=== PATIENT | female | born 1950 | race Caucasian/White ===

== ENCOUNTER 2022-08-02 15:43 | Inpatient (IN) ==
[2022-08-02 18:51] LABS: Basophils % 0.2 % (0.0-0.8); Eosinophils # 0.1 10*3/uL (0.0-0.87); Eosinophils % 1.2 % (0.00-10.9); Hematocrit 32.4 VOL% (35.7-47.0); Hemoglobin 11.1 GM/DL (12.0-16.0); Immature Granulocytes % 0.5 %; Immature Granulocytes Absolute 0.04 #; Lymphocytes # 0.8 10*3/uL (1.4-4.0); Mean Corpuscular HGB Conc 34.3 GM/DL (32-36); Mean Corpuscular Volume 90.5 FL (87-102); Mean Platelet Volume 9.9 FL (9.6-12.0); Monocytes # 0.7 10*3/uL (0.11-0.8); Monocytes % 9.2 % (1.7-12.7); Neutrophils % 78.9 % (38.7-73.9); Platelet Count 198 T/CUMM (130-400); Red Blood Count 3.58 MC/CUMM (3.8-5.5); Red Cell Distribution Width 12.9 % (9.3-17.3)
[2022-08-02 19:10] LABS: Albumin 3.1 G/DL (3.4-5.0); Bilirubin,Total 1.2 MG/DL (0.20-1.00); Calcium 8.4 MG/DL (8.5-10.1); Potassium 3.8 MMOL/L (3.5-5.1); Total Protein 6.2 G/DL (6.4-8.2)
[2022-08-02 20:02] LABS: Bilirubin,Urine Negative (Negative); Blood, Urine Negative (Negative); Glucose,Urine (UA) Negative (Negative); Hyaline Casts,Urine 1 /LPF (0-3); Ketones,Urine Negative (Negative); Nitrite,Urine Negative (Negative); Protein,Urine Negative (Negative); RBC,Urine <1 /HPF (0-4); Urine Appearance CLEAR (Clear); Urine Color Yellow (Yellow); Urine Specific Gravity 1.017 (1.001-1.035)
[2022-08-02] MEDS ORDERED: FUROSEMIDE 40 MG/4 ML VIAL IV STA (21:43)
[2022-08-02] MEDS ORDERED: ACETAMINOPHEN 325 MG TABLET PO PRN (21:43)
[2022-08-02] MEDS ORDERED: hydrALAZINE 20 MG/1 ML VIAL IV PRN (21:43)
[2022-08-02] MEDS ORDERED: MORPHINE 2 MG/1 ML SYRINGE IV PRN (21:43)
[2022-08-02] MEDS: CIPROFLOXACIN INJ 200 MG/100 ML PREMIX IV SCH (22:32)
[2022-08-02] MEDS: metroNIDAZOLE INJ 500 MG/100 ML PREMIX IV SCH (23:20)
[2022-08-03 04:41] LABS: Basophils % 0.2 % (0.0-0.8); Eosinophils # 0.1 10*3/uL (0.0-0.87); Eosinophils % 2.1 % (0.00-10.9); Hematocrit 31.9 VOL% (35.7-47.0); Hemoglobin 11.1 GM/DL (12.0-16.0); Immature Granulocytes % 0.8 %; Immature Granulocytes Absolute 0.05 #; Lymphocytes # 0.7 10*3/uL (1.4-4.0); Lymphocytes % 10.9 % (21.3-54.2); Mean Corpuscular HGB Conc 34.8 GM/DL (32-36); Mean Corpuscular Volume 89.6 FL (87-102); Mean Platelet Volume 9.9 FL (9.6-12.0); Monocytes # 0.8 10*3/uL (0.11-0.8); Monocytes % 11.5 % (1.7-12.7); Neutrophils % 74.5 % (38.7-73.9); Platelet Count 178 T/CUMM (130-400); Red Blood Count 3.56 MC/CUMM (3.8-5.5); Red Cell Distribution Width 12.8 % (9.3-17.3); White Blood Count 6.6 T/CUMM (4-12)
[2022-08-03 05:04] LABS: Calcium 8.7 MG/DL (8.5-10.1); Osmolality,Calculated 270.2 MOS/KG (273-304); Potassium 3.1 MMOL/L (3.5-5.1)
[2022-08-03] MEDS: LEVOTHYROXINE 88 MCG TABLET PO SCH (05:21)
[2022-08-03] MEDS: metroNIDAZOLE INJ 500 MG/100 ML PREMIX IV SCH ×3 (05:29→22:50)
[2022-08-03] MEDS: ASPIRIN EC 81 MG TABLET PO SCH (08:26)
[2022-08-03] MEDS: FUROSEMIDE 40 MG/4 ML VIAL IV SCH ×2 (08:26→16:49)
[2022-08-03] MEDS: SPIRONOLACTONE 25 MG TABLET PO SCH (08:26)
[2022-08-03] MEDS: ISOSORBIDE MONONITRATE 60 MG TABLET PO SCH (08:27)
[2022-08-03] MEDS: METOPROLOL TARTRATE 25 MG TABLET PO SCH ×2 (08:27→21:54)
[2022-08-03] MEDS: LOSARTAN 25 MG TABLET PO SCH (08:27)
[2022-08-03] MEDS: MAGNESIUM CHLORIDE 64 MG TABLET PO SCH (08:28)
[2022-08-03] MEDS: PANTOPRAZOLE 40 MG TABLET PO SCH (08:28)
[2022-08-03] MEDS: CIPROFLOXACIN INJ 200 MG/100 ML PREMIX IV SCH ×2 (10:15→21:54)
[2022-08-03] MEDS: POTASSIUM CHLORIDE RIDER 10 MEQ/100 ML PREMIX IV SCH (12:34)
[2022-08-03] MEDS: OSELTAMIVIR 75 MG CAPSULE PO SCH (21:54)
[2022-08-04] MEDS: metroNIDAZOLE INJ 500 MG/100 ML PREMIX IV SCH ×3 (05:58→22:52)
[2022-08-04] MEDS: LEVOTHYROXINE 88 MCG TABLET PO SCH (05:58)
[2022-08-04 06:18] LABS: Basophils % 0.5 % (0.0-0.8); Eosinophils # 0.2 10*3/uL (0.0-0.87); Eosinophils % 3.7 % (0.00-10.9); Hematocrit 34.7 VOL% (35.7-47.0); Hemoglobin 11.8 GM/DL (12.0-16.0); Immature Granulocytes % 0.8 %; Immature Granulocytes Absolute 0.05 #; Lymphocytes # 1.2 10*3/uL (1.4-4.0); Lymphocytes % 17.6 % (21.3-54.2); Mean Corpuscular Volume 90.8 FL (87-102); Mean Platelet Volume 10.6 FL (9.6-12.0); Monocytes # 0.7 10*3/uL (0.11-0.8); Monocytes % 10.8 % (1.7-12.7); Neutrophils % 66.6 % (38.7-73.9); Platelet Count 240 T/CUMM (130-400); Red Blood Count 3.82 MC/CUMM (3.8-5.5); White Blood Count 6.6 T/CUMM (4-12)
[2022-08-04 06:44] LABS: Albumin 3.2 G/DL (3.4-5.0); Bilirubin,Total 0.8 MG/DL (0.20-1.00); Osmolality,Calculated 269.4 MOS/KG (273-304); Potassium 3.5 MMOL/L (3.5-5.1); Total Protein 7.1 G/DL (6.4-8.2)
[2022-08-04] MEDS: OSELTAMIVIR 75 MG CAPSULE PO SCH ×2 (09:47→21:50)
[2022-08-04] MEDS: FUROSEMIDE 40 MG TABLET PO SCH (09:47)
[2022-08-04] MEDS: LOSARTAN 25 MG TABLET PO SCH (09:47)
[2022-08-04] MEDS: MAGNESIUM CHLORIDE 64 MG TABLET PO SCH (09:47)
[2022-08-04] MEDS: ASPIRIN EC 81 MG TABLET PO SCH (09:47)
[2022-08-04] MEDS: METOPROLOL TARTRATE 25 MG TABLET PO SCH ×2 (09:47→21:50)
[2022-08-04] MEDS: SPIRONOLACTONE 25 MG TABLET PO SCH (09:47)
[2022-08-04] MEDS: ISOSORBIDE MONONITRATE 60 MG TABLET PO SCH (09:47)
[2022-08-04] MEDS: PANTOPRAZOLE 40 MG TABLET PO SCH (09:47)
[2022-08-04] MEDS: FUROSEMIDE 40 MG/4 ML VIAL IV SCH (09:57)
[2022-08-04] MEDS: CIPROFLOXACIN INJ 200 MG/100 ML PREMIX IV SCH ×2 (11:22→21:51)
[2022-08-04] MEDS: ONDANSETRON 4 MG/2 ML VIAL IV PRN (11:54)
[2022-08-05 05:55] LABS: Basophils % 0.2 % (0.0-0.8); Eosinophils # 0.2 10*3/uL (0.0-0.87); Eosinophils % 3.2 % (0.00-10.9); Hemoglobin 10.5 GM/DL (12.0-16.0); Immature Granulocytes % 0.9 %; Immature Granulocytes Absolute 0.04 #; Lymphocytes # 1.1 10*3/uL (1.4-4.0); Lymphocytes % 23.4 % (21.3-54.2); Mean Corpuscular HGB Conc 33.9 GM/DL (32-36); Mean Corpuscular Volume 90.9 FL (87-102); Mean Platelet Volume 9.9 FL (9.6-12.0); Monocytes # 0.5 10*3/uL (0.11-0.8); Monocytes % 11.5 % (1.7-12.7); Neutrophils % 60.8 % (38.7-73.9); Platelet Count 252 T/CUMM (130-400); Red Blood Count 3.41 MC/CUMM (3.8-5.5); Red Cell Distribution Width 12.9 % (9.3-17.3); White Blood Count 4.6 T/CUMM (4-12)
[2022-08-05] MEDS: LEVOTHYROXINE 88 MCG TABLET PO SCH (06:15)
[2022-08-05] MEDS: metroNIDAZOLE INJ 500 MG/100 ML PREMIX IV SCH ×3 (06:15→21:04)
[2022-08-05 06:21] LABS: Calcium 8.6 MG/DL (8.5-10.1); Osmolality,Calculated 266.5 MOS/KG (273-304); Potassium 3.3 MMOL/L (3.5-5.1)
[2022-08-05] MEDS ORDERED: POTASSIUM CHLORIDE 20 MEQ TABLET PO ONE (08:35)
[2022-08-05] MEDS: LOSARTAN 25 MG TABLET PO SCH (09:09)
[2022-08-05] MEDS: ISOSORBIDE MONONITRATE 60 MG TABLET PO SCH (09:09)
[2022-08-05] MEDS: FUROSEMIDE 40 MG TABLET PO SCH (09:09)
[2022-08-05] MEDS: METOPROLOL TARTRATE 25 MG TABLET PO SCH ×2 (09:09→20:55)
[2022-08-05] MEDS: SPIRONOLACTONE 25 MG TABLET PO SCH (09:09)
[2022-08-05] MEDS: PANTOPRAZOLE 40 MG TABLET PO SCH (09:09)
[2022-08-05] MEDS: MAGNESIUM CHLORIDE 64 MG TABLET PO SCH (09:09)
[2022-08-05] MEDS: ASPIRIN EC 81 MG TABLET PO SCH (09:09)
[2022-08-05] MEDS: HEPARIN 5,000 UNIT/1 ML VIAL SUBCUT SCH ×2 (09:10→20:57)
[2022-08-05] MEDS: CIPROFLOXACIN INJ 200 MG/100 ML PREMIX IV SCH ×2 (09:10→22:51)
[2022-08-05] MEDS: SODIUM CHLORIDE 0.9% 250 ML IV SCH ×3 (16:16→23:44)
[2022-08-05] MEDS: POTASSIUM CHLORIDE RIDER 10 MEQ/100 ML PREMIX IV SCH ×2 (20:06→20:07)
[2022-08-06] MEDS: ONDANSETRON 4 MG/2 ML VIAL IV PRN (00:01)
[2022-08-06] MEDS: SODIUM CHLORIDE 0.9% 250 ML IV SCH ×2 (04:52→11:47)
[2022-08-06] MEDS: LEVOTHYROXINE 88 MCG TABLET PO SCH (05:45)
[2022-08-06] MEDS: metroNIDAZOLE INJ 500 MG/100 ML PREMIX IV SCH ×2 (05:45→14:14)
[2022-08-06 06:22] LABS: Albumin 2.8 G/DL (3.4-5.0); Bilirubin,Total 0.5 MG/DL (0.20-1.00); Calcium 8.3 MG/DL (8.5-10.1); Osmolality,Calculated 272.1 MOS/KG (273-304); Total Protein 5.8 G/DL (6.4-8.2)
[2022-08-06] MEDS: ISOSORBIDE MONONITRATE 60 MG TABLET PO SCH (09:48)
[2022-08-06] MEDS: METOPROLOL TARTRATE 25 MG TABLET PO SCH (09:48)
[2022-08-06] MEDS: HEPARIN 5,000 UNIT/1 ML VIAL SUBCUT SCH (09:49)
[2022-08-06] MEDS: ASPIRIN EC 81 MG TABLET PO SCH (09:49)
[2022-08-06] MEDS: MAGNESIUM CHLORIDE 64 MG TABLET PO SCH (09:49)
[2022-08-06] MEDS: LOSARTAN 25 MG TABLET PO SCH (09:49)
[2022-08-06 11:41] VITALS: BP 103/61
[2022-08-06] MEDS: CIPROFLOXACIN INJ 200 MG/100 ML PREMIX IV SCH (11:46)
[2022-08-06] MEDS: PANTOPRAZOLE 40 MG TABLET PO SCH (11:47)
[2022-08-17] MEDS ORDERED: EVOLOCUMAB 140 MG/ML SUBCUT SCH (09:00)
== END 2022-08-06 16:05 | disposition home or self-care (01) | DRG 391 ==
LOC: N.ED 15:43 → N.EDINP 21:43 → N.TELEN 08-03 00:10
PROVIDERS: ADMIT Internal Medicine; ATTEND Internal Medicine

== ENCOUNTER 2022-09-13 16:15 | Inpatient (IN) ==
[2022-09-13] MEDS ORDERED: SODIUM CHLORIDE 0.9% 1,000 ML IV STA (17:18)
[2022-09-13 17:37] LABS: PT Patient Result 10.9 SECS (10.1-12.1); Partial Thromboplastin Time 28.8 SECS (23.7-32.9)
[2022-09-13 17:45] LABS: Bilirubin,Direct 12.89 MG/DL (0.0-0.20)
[2022-09-13 17:48] LABS: Bilirubin,Total 15.9 MG/DL (0.20-1.00)
[2022-09-13 18:21] LABS: Bilirubin,Urine Large mg/dL (Negative); Blood, Urine Trace mg/dL (Negative); Glucose,Urine (UA) 100 mg/dL (Negative); Ketones,Urine Trace mg/dL (Negative); Mucus,Urine Occasional /LPF (Occasional); Nitrite,Urine Negative (Negative); Protein,Urine 100 mg/dL (Negative); RBC,Urine 4 /HPF (0-4); Squamous Epithelial Cell,Urine Occasional /HPF (0-10); Urine Appearance Clear (Clear); Urine Color Yellow (Yellow); Urine Urobilinogen 0.2 eU/dL (<2.0); Urine pH 5.5 (4.5-8.0)
[2022-09-13 19:32] LABS: Hepatitis B Core IgM Quant 0.07 Index; Hepatitis B Surface Ag Quant < 0.10 Index; Hepatitis B Surface Ag Result Non-Reactive (NonReactive); Hepatitis C Virus Ab Quant < 0.02 Index; Hepatitis C Virus Ab Result Non-Reactive (NonReactive)
[2022-09-13 21:23] LABS: Basophils % 0.4 % (0.0-0.8); Eosinophils # 0.2 10*3/uL (0.0-0.87); Eosinophils % 3.1 % (0.00-10.9); Hematocrit 34.8 VOL% (35.7-47.0); Hemoglobin 11.2 GM/DL (12.0-16.0); Immature Granulocytes % 0.6 %; Immature Granulocytes Absolute 0.03 #; Lymphocytes # 0.6 10*3/uL (1.4-4.0); Mean Corpuscular HGB Conc 32.2 GM/DL (32-36); Mean Corpuscular Volume 96.4 FL (87-102); Mean Platelet Volume 11.3 FL (9.6-12.0); Monocytes # 0.5 10*3/uL (0.11-0.8); Monocytes % 10.5 % (1.7-12.7); Neutrophils % 72.4 % (38.7-73.9); Platelet Count 160 T/CUMM (130-400); Red Blood Count 3.61 MC/CUMM (3.8-5.5); Red Cell Distribution Width 14.3 % (9.3-17.3); White Blood Count 4.9 T/CUMM (4-12)
[2022-09-13 21:35] LABS: Albumin 3.3 G/DL (3.4-5.0); Potassium 3.5 MMOL/L (3.5-5.1); Total Protein 6.9 G/DL (6.4-8.2)
[2022-09-13 21:38] LABS: Bilirubin,Total 15.8 MG/DL (0.20-1.00)
[2022-09-13] MEDS ORDERED: ONDANSETRON 4 MG/2 ML VIAL IV PRN (22:45)
[2022-09-13] MEDS ORDERED: diphenhydrAMINE CAP 25 MG CAPSULE PO PRN (22:45)
[2022-09-13] MEDS ORDERED: ZALEPLON 5 MG CAPSULE PO PRN (22:45)
[2022-09-13] MEDS ORDERED: NICOTINE 21 MG/24 HR PATCH TRANSDERM PRN (22:45)
[2022-09-13] MEDS ORDERED: guaiFENesin/DM ER 600-30 MG TABLET PO PRN (22:45)
[2022-09-13] MEDS ORDERED: hydrALAZINE 20 MG/1 ML VIAL IV PRN (22:45)
[2022-09-13] MEDS: SODIUM CHLORIDE 0.9% 1,000 ML IV SCH (23:54)
[2022-09-14 06:32] LABS: Basophils % 0.3 % (0.0-0.8); Eosinophils # 0.1 10*3/uL (0.0-0.87); Eosinophils % 2.4 % (0.00-10.9); Hematocrit 32.4 VOL% (35.7-47.0); Hemoglobin 9.9 GM/DL (12.0-16.0); Immature Granulocytes % 0.3 %; Immature Granulocytes Absolute 0.01 #; Lymphocytes # 0.6 10*3/uL (1.4-4.0); Lymphocytes % 16.6 % (21.3-54.2); Mean Corpuscular HGB Conc 30.6 GM/DL (32-36); Mean Corpuscular Volume 100.9 FL (87-102); Mean Platelet Volume 10.9 FL (9.6-12.0); Monocytes # 0.4 10*3/uL (0.11-0.8); Neutrophils % 69.4 % (38.7-73.9); Platelet Count 101 T/CUMM (130-400); Red Blood Count 3.21 MC/CUMM (3.8-5.5); Red Cell Distribution Width 14.6 % (9.3-17.3); White Blood Count 3.7 T/CUMM (4-12)
[2022-09-14 06:38] LABS: Platelet Estimate Decreased
[2022-09-14 06:40] LABS: Albumin 2.6 G/DL (3.4-5.0); Calcium 8.5 MG/DL (8.5-10.1); Osmolality,Calculated 276.4 MOS/KG (273-304); Potassium 3.2 MMOL/L (3.5-5.1); Total Protein 5.4 G/DL (6.4-8.2)
[2022-09-14] MEDS: INSULIN LISPRO 100 UNIT/ML SUBCUT SCH ×3 (09:36→16:48)
[2022-09-14] MEDS: PANTOPRAZOLE 40 MG TABLET PO SCH (09:36)
[2022-09-14] MEDS: HEPARIN 5,000 UNIT/1 ML VIAL SUBCUT SCH ×2 (09:39→22:45)
[2022-09-14] MEDS ORDERED: GLUCAGON 1 MG VIAL IM PRN (15:58)
[2022-09-14] MEDS ORDERED: DEXTROSE 10% 250 ML BAG IV PRN (16:00)
[2022-09-14] MEDS ORDERED: TUBERCULIN SKIN TEST 0.1 ML SYRINGE INTRADERM ONE (16:10)
[2022-09-14 16:41] LABS: % Iron Saturation 23.1 % (18-50)
[2022-09-15] MEDS: SODIUM CHLORIDE 0.9% 1,000 ML IV SCH ×2 (03:04→22:04)
[2022-09-15] MEDS: INSULIN LISPRO 100 UNIT/ML SUBCUT SCH ×5 (03:08→21:57)
[2022-09-15 05:08] LABS: Basophils % 0.2 % (0.0-0.8); Eosinophils # 0.1 10*3/uL (0.0-0.87); Hematocrit 28.2 VOL% (35.7-47.0); Hemoglobin 9.3 GM/DL (12.0-16.0); Immature Granulocytes % 0.7 %; Immature Granulocytes Absolute 0.03 #; Lymphocytes # 0.7 10*3/uL (1.4-4.0); Lymphocytes % 16.2 % (21.3-54.2); Mean Corpuscular Volume 93.7 FL (87-102); Mean Platelet Volume 11.5 FL (9.6-12.0); Monocytes # 0.5 10*3/uL (0.11-0.8); Monocytes % 12.3 % (1.7-12.7); Neutrophils % 68.6 % (38.7-73.9); Platelet Count 115 T/CUMM (130-400); Red Blood Count 3.01 MC/CUMM (3.8-5.5); Red Cell Distribution Width 14.5 % (9.3-17.3); White Blood Count 4.1 T/CUMM (4-12)
[2022-09-15 05:32] LABS: Albumin 2.5 G/DL (3.4-5.0); Calcium 8.5 MG/DL (8.5-10.1); Osmolality,Calculated 276.5 MOS/KG (273-304); Potassium 3.1 MMOL/L (3.5-5.1); Total Protein 5.3 G/DL (6.4-8.2)
[2022-09-15 05:38] LABS: Bilirubin,Total 15.9 MG/DL (0.20-1.00)
[2022-09-15] MEDS: LEVOTHYROXINE 100 MCG TABLET PO SCH (06:17)
[2022-09-15] MEDS: POTASSIUM CHLORIDE 20 MEQ TABLET PO PRN (09:35)
[2022-09-15] MEDS: POTASSIUM CHLORIDE 10 MEQ TABLET PO SCH (09:35)
[2022-09-15] MEDS: ISOSORBIDE MONONITRATE 60 MG TABLET PO SCH (09:35)
[2022-09-15] MEDS: ASPIRIN EC 81 MG TABLET PO SCH (09:35)
[2022-09-15] MEDS: METOPROLOL TARTRATE 25 MG TABLET PO SCH (09:35)
[2022-09-15] MEDS: MAGNESIUM CHLORIDE 64 MG TABLET PO SCH (09:35)
[2022-09-15] MEDS: LOSARTAN 25 MG TABLET PO SCH (09:36)
[2022-09-15] MEDS: PANTOPRAZOLE 40 MG TABLET PO SCH (09:36)
[2022-09-15] MEDS: HEPARIN 5,000 UNIT/1 ML VIAL SUBCUT SCH ×2 (09:38→21:59)
[2022-09-15] MEDS ORDERED: hydrOXYzine HCL 25 MG TABLET PO PRN (11:57)
[2022-09-16 05:03] LABS: Basophils % 0.3 % (0.0-0.8); Eosinophils # 0.1 10*3/uL (0.0-0.87); Eosinophils % 3.8 % (0.00-10.9); Hematocrit 27.2 VOL% (35.7-47.0); Immature Granulocytes % 0.9 %; Immature Granulocytes Absolute 0.03 #; Lymphocytes # 0.8 10*3/uL (1.4-4.0); Lymphocytes % 24.7 % (21.3-54.2); Mean Corpuscular HGB Conc 33.1 GM/DL (32-36); Mean Corpuscular Volume 93.2 FL (87-102); Mean Platelet Volume 11.1 FL (9.6-12.0); Monocytes # 0.4 10*3/uL (0.11-0.8); Monocytes % 13.8 % (1.7-12.7); Neutrophils % 56.5 % (38.7-73.9); Platelet Count 122 T/CUMM (130-400); Red Blood Count 2.92 MC/CUMM (3.8-5.5); Red Cell Distribution Width 14.9 % (9.3-17.3); White Blood Count 3.2 T/CUMM (4-12)
[2022-09-16 05:13] LABS: Albumin 2.3 G/DL (3.4-5.0); Calcium 8.3 MG/DL (8.5-10.1); Osmolality,Calculated 279.3 MOS/KG (273-304); Potassium 3.4 MMOL/L (3.5-5.1); Total Protein 5.2 G/DL (6.4-8.2)
[2022-09-16 05:15] LABS: Bilirubin,Total 17.6 MG/DL (0.20-1.00)
[2022-09-16 05:20] LABS: INR 1.1; PT Patient Result 12.4 SECS (10.1-12.1); Partial Thromboplastin Time 32.5 SECS (23.7-32.9)
[2022-09-16] MEDS: POTASSIUM CHLORIDE 20 MEQ TABLET PO PRN ×3 (05:32→14:51)
[2022-09-16] MEDS: LEVOTHYROXINE 100 MCG TABLET PO SCH (05:33)
[2022-09-16 05:59] LABS: Anisocytosis 1+; Macrocytosis 1+; Platelet Estimate Adequate
[2022-09-16] MEDS: SODIUM CHLORIDE 0.9% 1,000 ML IV SCH ×2 (08:49→17:30)
[2022-09-16] MEDS: INSULIN LISPRO 100 UNIT/ML SUBCUT SCH ×4 (08:49→20:31)
[2022-09-16] MEDS: METOPROLOL TARTRATE 25 MG TABLET PO SCH (10:03)
[2022-09-16] MEDS: LOSARTAN 25 MG TABLET PO SCH (10:03)
[2022-09-16] MEDS: ISOSORBIDE MONONITRATE 60 MG TABLET PO SCH (10:04)
[2022-09-16] MEDS: ASPIRIN EC 81 MG TABLET PO SCH (10:05)
[2022-09-16] MEDS: PANTOPRAZOLE 40 MG TABLET PO SCH (10:06)
[2022-09-16] MEDS: MAGNESIUM CHLORIDE 64 MG TABLET PO SCH (10:06)
[2022-09-16] MEDS: HEPARIN 5,000 UNIT/1 ML VIAL SUBCUT SCH ×2 (10:08→20:30)
[2022-09-16] MEDS: POTASSIUM CHLORIDE 10 MEQ TABLET PO SCH (10:10)
[2022-09-17] MEDS: SODIUM CHLORIDE 0.9% 1,000 ML IV SCH ×2 (00:58→18:00)
[2022-09-17] MEDS: LEVOTHYROXINE 100 MCG TABLET PO SCH (05:42)
[2022-09-17 05:48] LABS: Basophils % 0.3 % (0.0-0.8); Eosinophils # 0.2 10*3/uL (0.0-0.87); Eosinophils % 6.4 % (0.00-10.9); Hematocrit 26.9 VOL% (35.7-47.0); Hemoglobin 8.8 GM/DL (12.0-16.0); Immature Granulocytes % 0.7 %; Immature Granulocytes Absolute 0.02 #; Lymphocytes # 0.7 10*3/uL (1.4-4.0); Lymphocytes % 24.7 % (21.3-54.2); Mean Corpuscular HGB Conc 32.7 GM/DL (32-36); Mean Corpuscular Volume 93.4 FL (87-102); Mean Platelet Volume 11.7 FL (9.6-12.0); Monocytes # 0.3 10*3/uL (0.11-0.8); Monocytes % 11.5 % (1.7-12.7); Neutrophils % 56.4 % (38.7-73.9); Red Blood Count 2.88 MC/CUMM (3.8-5.5); Red Cell Distribution Width 15.1 % (9.3-17.3)
[2022-09-17 05:49] LABS: Platelet Count 122 T/CUMM (130-400)
[2022-09-17 06:13] LABS: Albumin 2.3 G/DL (3.4-5.0); Calcium 8.2 MG/DL (8.5-10.1); Osmolality,Calculated 271.8 MOS/KG (273-304); Potassium 3.9 MMOL/L (3.5-5.1)
[2022-09-17 06:15] LABS: Bilirubin,Total 16.7 MG/DL (0.20-1.00)
[2022-09-17 07:08] LABS: INR 1.2; Partial Thromboplastin Time 37.3 SECS (23.7-32.9)
[2022-09-17] MEDS: PANTOPRAZOLE 40 MG TABLET PO SCH (10:22)
[2022-09-17] MEDS: ISOSORBIDE MONONITRATE 60 MG TABLET PO SCH (10:22)
[2022-09-17] MEDS: POTASSIUM CHLORIDE 10 MEQ TABLET PO SCH (10:22)
[2022-09-17] MEDS: METOPROLOL TARTRATE 25 MG TABLET PO SCH (10:22)
[2022-09-17] MEDS: LOSARTAN 25 MG TABLET PO SCH (10:23)
[2022-09-17] MEDS: ASPIRIN EC 81 MG TABLET PO SCH (10:23)
[2022-09-17] MEDS: MAGNESIUM CHLORIDE 64 MG TABLET PO SCH (10:23)
[2022-09-17] MEDS: INSULIN LISPRO 100 UNIT/ML SUBCUT SCH ×4 (11:19→21:36)
[2022-09-18] MEDS: SODIUM CHLORIDE 0.9% 1,000 ML IV SCH (05:00)
[2022-09-18 06:00] LABS: Basophils % 0.5 % (0.0-0.8); Eosinophils # 0.2 10*3/uL (0.0-0.87); Eosinophils % 5.5 % (0.00-10.9); Hematocrit 27.1 VOL% (35.7-47.0); Hemoglobin 8.6 GM/DL (12.0-16.0); Immature Granulocytes % 0.5 %; Immature Granulocytes Absolute 0.02 #; Lymphocytes # 0.7 10*3/uL (1.4-4.0); Lymphocytes % 19.2 % (21.3-54.2); Mean Corpuscular HGB Conc 31.7 GM/DL (32-36); Mean Corpuscular Volume 94.4 FL (87-102); Mean Platelet Volume 11.4 FL (9.6-12.0); Monocytes # 0.4 10*3/uL (0.11-0.8); Neutrophils % 64.3 % (38.7-73.9); Platelet Count 142 T/CUMM (130-400); Red Blood Count 2.87 MC/CUMM (3.8-5.5); Red Cell Distribution Width 15.1 % (9.3-17.3); White Blood Count 3.8 T/CUMM (4-12)
[2022-09-18 06:10] LABS: INR 1.1; PT Patient Result 12.3 SECS (10.1-12.1); Partial Thromboplastin Time 31.6 SECS (23.7-32.9)
[2022-09-18] MEDS: LEVOTHYROXINE 100 MCG TABLET PO SCH (06:13)
[2022-09-18 06:22] LABS: Albumin 2.4 G/DL (3.4-5.0); Calcium 8.6 MG/DL (8.5-10.1); Osmolality,Calculated 272.5 MOS/KG (273-304); Potassium 4.1 MMOL/L (3.5-5.1); Total Protein 5.3 G/DL (6.4-8.2)
[2022-09-18 06:24] LABS: Bilirubin,Total 16.1 MG/DL (0.20-1.00)
[2022-09-18] MEDS ORDERED: DEXTROSE 5% 1,000 ML IV SCH (07:30)
[2022-09-18] MEDS: INSULIN LISPRO 100 UNIT/ML SUBCUT SCH ×2 (08:04→11:44)
[2022-09-18] MEDS ORDERED: DIAZEPAM 5 MG TABLET PO ONE (10:04)
[2022-09-18 12:20] VITALS: BP 136/97
[2022-09-18] MEDS: POTASSIUM CHLORIDE 10 MEQ TABLET PO SCH (12:33)
[2022-09-18] MEDS: ISOSORBIDE MONONITRATE 60 MG TABLET PO SCH (12:33)
[2022-09-18] MEDS: LOSARTAN 25 MG TABLET PO SCH (12:33)
[2022-09-18] MEDS: PANTOPRAZOLE 40 MG TABLET PO SCH (12:34)
[2022-09-18] MEDS: MAGNESIUM CHLORIDE 64 MG TABLET PO SCH (12:34)
[2022-09-18] MEDS: METOPROLOL TARTRATE 25 MG TABLET PO SCH (12:34)
[2022-09-19 18:36] LABS: Antinuclear Ab, S 0.3 U
[2022-09-19 20:46] LABS: Mitochondrial Antibody (M2) <0.1 U
[2022-09-20 11:01] LABS: Smooth Muscle Antibody Negative (Negative)
== END 2022-09-18 15:00 | disposition home or self-care (01) | DRG 442 ==
LOC: N.ED 16:15 → N.EDINP 22:45 → SUATTDRO 22:45 → N.2E 23:52
PROVIDERS: ADMIT Internal Medicine Geriatric Medicine; ATTEND Internal Medicine